=== PATIENT | female | born 1995 | race Caucasian/White ===

== ENCOUNTER 2020-08-30 11:29 | Emergency (ER) | payer SELFPAY ==
[2020-08-30 11:39] VITALS: BP 143/88; PULSE 70; RESP 14; TEMP 36.7; O2SAT 97
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
== END 2020-08-30 13:50 | disposition home or self-care (01) ==
PROVIDERS: Emergency Provider Physician Assistant
DX: M25.512 Pain in left shoulder (principal); Y04.0XXA Assault by unarmed brawl or fight, initial encounter; H92.02 Otalgia, left ear
CPT/HCPCS: 99283; 73030

== ENCOUNTER 2020-10-17 18:11 | Emergency (ER) | payer SELFPAY ==
[2020-10-17 18:16] VITALS: BP 147/90; PULSE 74; RESP 16; TEMP 36.8; O2SAT 98
--- NOTE | 2020-10-17 18:40 | ED.GENADUL_ITS ---
Discharge Plan Disposition Patient Disposition: HOME Condition: Stable Discharge Details Clinical Impression: Otitis media Primary Care Provider: Hina,Local ED Provider: Clifton Frye Home Meds and New Rx's Prescriptions: New amoxicillin-pot clavulanate [Augmentin] 875-125 mg tablet 1 tab PO BID Qty: 9 RF: 0 Continued loratadine-pseudoephedrine [Claritin-D 24 Hour] 10-240 mg tablet extended release 24 hr 1 tab PO DAILY Qty: 14 RF: 0 Discharge Instructions Instructions: Ear Infection (ED) Additional Instructions: Please take ibuprofen over the counter. Take 600mg by mouth every 6 hours as needed for pain. Please take acetaminophen (tylenol) - 650mg every 6 hours by mouth as needed for pain. Please take full course of antibiotic as prescribed. If pain persists more than 48 hours, please follow-up with an gearman. Please contact your primary care physician to arrange follow-up. Return to the ER for any worsening or new concerning symptoms. Stand Alone Forms: Work Release Referrals: [facility] [Provider Group] David Mirza MD [ [facility] STAFF PHYSICIAN] - Medical Decision Making 25-year-old female here with bilateral ear pain intermittent for past 2 months and worse over the past 1 to 2 weeks. Patient has been trying NSAIDs and has tried decongestant without relief. Patient has bulging TM on the right. Suspect otitis media. Given duration of symptoms and severity of discomfort, I will initiate treatment with Augmentin. Patient took ibuprofen earlier today. I will give a dose of Tylenol. Usual customary discharge instructions reviewed the patient. She was encouraged to follow-up with ENT should symptoms persist. HPI General Mode of arrival: ambulatory . Date/Time Provider Initiated Documentation: 10/17/20 18:28 . Limitations to Documentation: no limitations . Information obtained by: patient . HPI Narrative: 25-year-old female with history of prior remote ear infection, presents with chief complaint of ear pain. Patient notes that over the past couple months she has had intermittent pain in her ears. She states she was seen here in the emergency department about a month ago and told that she had a viral illness and was advised to take decongestants. She she has continued to have intermittent pain worse over the past week. Pain is now severe. Right greater than left. Pain is bilateral ears. She has had associated intermittent headache. She also notes some swelling adjacent to right ear/jaw. Patient has taken a few doses of prednisone that were left over from a friend's prescription. Related Data Home Medications Medication Instructions Recorded Confirmed loratadine-pseudoephedrine 1 tab PO DAILY #14 tab 08/30/20 10/17/20 [Claritin-D 24 Hour] amoxicillin-pot clavulanate 1 tab PO BID #9 tab 10/17/20 [Augmentin] Previous Rx's Medication Instructions Recorded loratadine-pseudoephedrine 1 tab PO DAILY #14 tab 08/30/20 [Claritin-D 24 Hour] amoxicillin-pot clavulanate 1 tab PO BID #9 tab 10/17/20 [Augmentin] Allergies Allergy/AdvReac Type Severity Reaction Status Date / Time No Known Allergies Allergy Unverified 09/17/20 15:14 General Stated Complaint: EarProblem IMAN: 4 Review of Systems All systems reviewed & are unremarkable except as noted in HPI and below Constitutional Constitutional: Denies chills, Denies fever(s) and Reports headache(s) ENT Ears, Nose, Mouth, and Throat: Reports as per HPI, Denies dental pain, Denies dysphagia, Reports otalgia, Reports headache(s) and Denies sore throat Respiratory Respiratory: Denies cough Gastrointestinal Gastrointestinal: Denies dysphagia Neurologic Neurologic: Reports headache(s) [facility] Medical History Sprain of left acromioclavicular joint (08/28/20) Social History Smoking/Tobacco Use Status: Never Smoking risk assessment performed?: Yes Alcohol Intake: current Alcohol Intake frequency: holidays/special occasions only Substance use type: does not use Current gender identity: female Do you feel safe at home: Yes Do you feel safe in your relationship?: Yes Exam Const General: cooperative and no acute distress HENNC Head: normocephalic and atraumatic Ears: hearing grossly normal bilaterally, TM normal on the left, EAC's normal, mastoids normal, periauricular adenopathy on the right and TM abnormal (rt) bulging; not with effusion, not erythematous and not perforated General nose exam: external nose normal Face and sinus: normal facial exam and face symmetric Mouth: oral mucosae normal and moist mucous membranes Throat: posterior oropharynx normal and uvula midline Other: No stridor, no trismus Eyes Conjunctivae: normal conjunctivae Sclera: normal sclerae EOM: EOM intact bilaterally Neck Neck: no meningeal signs, trachea midline, supple, no anterior neck swelling and No submandibular swelling Resp Auscultation: clear to auscultation bilaterally, no rales, no rhonchi and no wheezes Cardio Rate: regular rate and not tachycardic Rhythm: regular rhythm Skin General skin exam: no rashes or lesions noted Neuro General: patient alert, patient awake, patient oriented x3 and tone normal Gait: normal gait Extrem General: no edema Psych Appearance: grossly normal Mental Status: mental status grossly normal Course Vital Signs Vital signs: Vital Signs Temperature 36.8 C 10/17/20 18:16 Pulse 74 10/17/20 18:16 Respiratory Rate 16 10/17/20 18:16 Blood Pressure 147/90 H 10/17/20 18:16 Pulse Oximetry 98 10/17/20 18:16 Temperature 36.8 C 10/17/20 18:16 Temperature Source Skin 10/17/20 18:16 Pulse 74 10/17/20 18:16 Respiratory Rate 16 10/17/20 18:16 Respiratory Effort Non-Labored 10/17/20 18:20 Blood Pressure 147/90 H 10/17/20 18:16 Blood Pressure Position Sitting 10/17/20 18:16 Pulse Oximetry 98 10/17/20 18:16 Oxygen Delivery Method Room Air 10/17/20 18:16 Oxygen Flow Rate 0 10/17/20 18:16 Pain Level 10 10/17/20 18:20
[2020-10-17] MEDS: Amoxicillin 875/Clav. 125 TAB PO (18:50)
[2020-10-17] MEDS: Acetaminophen 325 MG TAB 650 MG PO (18:50)
[2020-10-17 18:57] VITALS: BP 123/94; PULSE 68; RESP 16; TEMP 36.8; O2SAT 100
== END 2020-10-17 19:01 | disposition home or self-care (01) ==
PROVIDERS: Emergency Provider Student in an Organized Health Care Education/Training Program
DX: H66.93 Otitis media, unspecified, bilateral (principal)
CPT/HCPCS: 99283